=== PATIENT | female | born 1965 | race Hispanic/Latino ===

== ENCOUNTER 2017-05-06 21:30 | Emergency (ER) | payer OTHER ==
--- NOTE | 2017-05-07 01:25 | Emergency Department Report ---
HPI - General Chief Complaint: Urogenital-Female Time Seen by Provider: 05/07/17 01:20 - HPI HPI: 52-year-old female comes in for concerns of pain with lesion coming from her rectum. Patient denies any bleeding she denies any pain denies any itchiness denies any blood. Patient just first noticed about 2030 tonight. Patient has no past medical history currently takes no medications and has no known drug allergies. ED Past Medical Hx - Past Medical History Hx GERD: Yes - Surgical History Additional Surgical History: csection x 2 myomectomy - Social History Smoking Status: Never Smoker Substance Use Type: None - Medications Home Medications: Home Medications Medication Instructions Recorded Confirmed Last Taken Type Ondansetron [Zofran] 4 mg PO Q6HR PRN #12 tablet 06/30/13 Unknown Rx Pantoprazole [Protonix] 40 mg PO QDAY 06/30/13 06/30/13 06/29/13 20:00 History ED Review of Systems ROS: Stated complaint: RECTAL BLEEDING Other details as noted in HPI Constitutional: denies: chills, fever Eyes: denies: eye pain, eye discharge, vision change ENT: denies: ear pain, throat pain Respiratory: denies: cough, shortness of breath, wheezing Cardiovascular: denies: chest pain, palpitations Endocrine: no symptoms reported Gastrointestinal: denies: abdominal pain, nausea, diarrhea Genitourinary: other (lesion coming from rectum) Musculoskeletal: denies: back pain, joint swelling, arthralgia Skin: denies: rash, lesions Neurological: denies: headache, weakness, paresthesias Hematological/Lymphatic: denies: easy bleeding, easy bruising Physical Exam - Physical Exam Vital Signs: Vital Signs 05/06/17 23:26 Temperature 98.1 F Pulse Rate 71 Respiratory 16 Rate Blood Pressure 148/87 O2 Sat by Pulse 100 Oximetry General: GENERAL: Alert and oriented x3, no apparent distress, Normal Gait, atraumatic. HEAD: Head is normocephalic and a-traumatic. EYES: Extra ocular muscles are intact. Pupils are equal, round, and reactive to light and accommodation. GENITOURINARY: Painless nonthrombosed external hemorrhoid noted. Rectal exam within normal limits. EXTREMITIES/MUSCULOSKELETAL: No cyanosis, clubbing, rash, lesions or edema. Full ROM bilaterally. NEUROLOGIC: No focal Deficit, Cranial nerves II through XII are grossly intact. No loss of sensation, No facial droop, PSYCHIATRIC: Mood is congruent with affect, denies suicidal or homicidal ideations. SKIN: Warm and dry, No lesions, No ulceration or induration present ED Course Vital Signs 05/06/17 23:26 Temperature 98.1 F Pulse Rate 71 Respiratory 16 Rate Blood Pressure 148/87 O2 Sat by Pulse 100 Oximetry ED Medical Decision Making - Medical Decision Making Patient's been evaluated by this provider fast track. I discussed with patient that she has a external hemorrhoid is nonthrombosed. Discussed with patient she can follow-up with her primary care provider for further evaluation. Patient verbalized understanding. Critical care attestation.: If time is entered above; I have spent that time in minutes in the direct care of this critically ill patient, excluding procedure time. ED Disposition Clinical Impression: External hemorrhoid Disposition: DC-01 TO HOME OR SELFCARE Is pt being admited?: No Does the pt Need Aspirin: No Condition: Stable Instructions: Hemorrhoids (ED) Additional Instructions: Please follow up with her primary care provider if lesion becomes painful. Referrals: ZULMA SPRAGUE MD [Primary Care Provider] - 3-5 Days Forms: Work/School Release Form(ED)
[2017-05-07 02:06] VITALS: BP 142/81
== END 2017-05-07 02:06 | disposition home or self-care (01) ==
LOC: ED 21:30
DX: K64.4 Residual hemorrhoidal skin tags (principal); K21.9 Gastro-esophageal reflux disease without esophagitis
CPT/HCPCS: 99282